=== PATIENT | female | born 1995 | race Caucasian/White ===

== ENCOUNTER 2018-03-04 11:06 | Day surgery (SDC) | payer OTHER ==
[~2018-03-04] VITALS: Ht 167.6 cm; Wt 106.2 kg
== END 2018-03-04 15:10 | disposition home or self-care (01) ==
LOC: ORSCSDS 11:06
PROVIDERS: Podiatrist Foot & Ankle Surgery
PROC: 0LSN0ZZ Reposition Right Lower Leg Tendon, Open Approach (ICD-10-PCS; principal; 2018-03-04 12:15)
PROC: 0JNQ0ZZ Release Right Foot Subcutaneous Tissue and Fascia, Open Approach (ICD-10-PCS; principal; 2018-03-04 12:15)
DX: M21.6X1 Other acquired deformities of right foot (principal); M72.2 Plantar fascial fibromatosis; F41.9 Anxiety disorder, unspecified; F32.9 Major depressive disorder, single episode, unspecified; E66.9 Obesity, unspecified; Z68.37 Body mass index [BMI] 37.0-37.9, adult
CPT/HCPCS: J0171; J0690; J2250; J2405; J3010

== ENCOUNTER → 2018-06-28 | Outpatient (CLI) | payer OTHER | LOC: LAB 19:11 → LAB SHORT 19:11 | PROVIDERS: Nurse Practitioner Family | DX: Z01.419 Encounter for gynecological examination (general) (routine) without abnormal findings (principal) | CPT/HCPCS: 87624; 87625; G0145 ==

== ENCOUNTER → 2019-02-09 | Outpatient (CLI) | payer SELFPAY | LOC: LAB SHORT 17:49 → LAB 17:49 | DX: J02.9 Acute pharyngitis, unspecified (principal) | CPT/HCPCS: 87070; 87077; 87186 ==

== ENCOUNTER → 2019-02-20 | Outpatient (CLI) | payer SELFPAY | END | disposition home or self-care (01) | LOC: LAB 18:06 → LAB SHORT 18:06 | DX: J02.9 Acute pharyngitis, unspecified (principal) | CPT/HCPCS: 87070 ==